=== PATIENT | female | born 1945 | race Caucasian/White ===

== ENCOUNTER 2016-07-17 21:16 | Emergency (ER) | payer MEDICARE, BC ==
[2016-07-17] MEDS ORDERED: IBUPROFEN 400 MG TABLET PO ONE (22:20)
--- NOTE | 2016-07-17 22:33 | ER NURSING DOCUMENTATION ---
Nurse's Notes [facility] Name:Josiane Acuña Age:71 yrs Sex:Female :1945 Arrival Date:07/17/2016 Time:21:16 Bed4 Private MD: Diagnosis:Knee Effusion;Knee and Leg Sprain Presentation: 07/17 21:30 Presenting complaint: Patient states: Missed a step and slid, landed on her right foot rs and caused pain in right knee. She has a hx of right knee osteoarthritis, planned replacement one month. Is able to wt bear, occurred 2 hours ago, took ibuprofen 200 mg, and has been icing it. Denies any other other injuries. Transition of care: Home. Notified ED Physician of patient's arrival and CC Dr. hCicas notified. 21:30 Acuity: CONCHITA 3 rs 21:30 Method Of Arrival: Private Vehicle rs Triage Assessment: 21:43 General: Appears in no apparent distress, comfortable, well developed, well nourished, rs well groomed, Behavior is cooperative, pleasant. Pain: Complains of pain in right knee. Neuro: No deficits noted. Level of Consciousness is awake, alert, Oriented to person, place, time, event. Cardiovascular: No deficits noted. Capillary refill < 3 seconds Pulses are 3+ in right radial artery. Respiratory: No deficits noted. Respiratory effort is even, unlabored, Respiratory pattern is regular, symmetrical. Derm: No deficits noted. Skin is intact, Skin is pink, warm & dry. Musculoskeletal: Circulation, motion, and sensation intact Capillary refill < 3 seconds Swelling present in right knee. Historical: - Allergies: Mjxujvd-Kha-Dhp Reductase Inhibitors; Levaquin; - Home Meds: 1. Albuterol Inhl 2. Advair Diskus Inhl 3. Protonix Oral 4. Aspirin Oral 5. Augmentin Oral for acute sinusitis 6. levothyroxine oral - PMHx: Breast cancer, left; ASTHMA; HYPOTHYROIDISM; OSTEOARTHRITIS; thyroid nodules; - PSHx: knee replacement, left; rotator cuff repair, bilat; Hysterectomy; - Tetanus: < 10 years. - Ebola Screening: : Patient negative for fever greater than or equal to 101.5 degrees Fahrenheit, and additional compatible Ebola Virus Disease symptoms. Patient denies exposure to infectious person. Patient denies travel to an Ebola-affected area in the 21 days before illness onset. No symptoms or risks identified at this time. . - Immunization history: Unable to Obtain. - Social history: Smoking status: Patient states was never smoker of tobacco. Patient/guardian denies using alcohol. Screenin:30 Infectious Disease Risk None. Abuse screen: Denies threats or abuse. Nutritional rs screening: No deficits noted. Vital Signs: 21:30 BP 144 / 65; Pulse 78; Resp 20; Temp 97.9; Pulse Ox 91% on R/A; Weight 83.01 kg; Height rs 5 ft. 6 in. (167.64 cm); Pain 5/10; 21:30 Body Mass Index 29.54 (83.01 kg, 167.64 cm) rs ED Course: 21:18 Patient arrived in ED. ma 21:20 True Chicas MD is Attending Physician. nc 21:30 Svetlana Hendrickson RN is Primary Nurse. rs 21:30 Arm band placed on Bed in low position Call Light in Reach HOB Elevated Side rails up rs x1. Family accompanied patient. X-ray done. 21:30 Door closed. Noise minimized. Lights dimmed. Verbal reassurance given. rs 21:30 Affected limb iced. Affected limb elevated. rs 21:31 Triage completed. rs 21:36 Port Xray Completed. ms 22:25 Crutch training done. Jonathon wrap to right knee Knee immobilizer applied on right knee. rs After putting the knee immobilizer on she stood up at cart side and c/o of it hurting her knee. The immobilizer was removed, and she was encouraged to take it home and wear it if possible. She agreed. 22:27 stood at cart side for crutch sizing and then practiced. rs Administered Medications: 22:15 Drug: Ibuprofen 200 mg; Route: PO; rs 22:31 Follow up: Response: Pain is decreased rs Outcome: 21:34 Discharge ordered by . nc 22:32 Patient left the ED. rs 07/19 10:16 Discharge F/U Call: Unable to reach: no answer st Signatures: Tequila Soliman RN RN st Stalker, Rachael, RN RN rs Chew, Scott, MD MD sc Strickland, Mary ms Addison, Melissa ma
--- NOTE | 2016-07-17 22:33 | ER PHYSICIAN DOCUMENTATION ---
Physician Documentation [facility] Name:Josiane Acuña Age:71 yrs Sex:Female :1945 Arrival Date:07/17/2016 Time:21:16 Bed4 Private MD: True Jones Disposition: 07/17/16 21:34 Discharged to Home/Self Care. Impression: Knee Effusion, Knee and Leg Sprain. - Condition is Good. - Discharge Instructions: KNEE SPRAIN, KNEE IMMOBILIZER. - Medical Reconciliation form form. - Follow up: Private Physician; When: 1 week; Reason: Recheck today's complaints. - Problem is new. - Symptoms are unchanged. HPI: 07/17 21:26 This 71 yrs old Female presents to ER with complaints of Knee Injury - RIGHT. sc 21:26 The patient presents with an injury. The complaints affect the right knee. Context: The sc problem was sustained caught self on stairs, no fall to ground or stairs but knee twisted and became painful and swelling. Onset: The symptom(s)/episode began/occurred today. Modifying factors: The symptoms are alleviated by elevating leg, and ice. Associated signs and symptoms: The patient has no apparent associated signs or symptoms. scheduled for right knee replacement in August. Historical: - Allergies: Cjaercj-Oau-Uve Reductase Inhibitors; Levaquin; - Home Meds: 1. Albuterol Inhl 2. Advair Diskus Inhl 3. Protonix Oral 4. Aspirin Oral 5. Augmentin Oral for acute sinusitis 6. levothyroxine oral - PMHx: Breast cancer, left; ASTHMA; HYPOTHYROIDISM; OSTEOARTHRITIS; thyroid nodules; - PSHx: knee replacement, left; rotator cuff repair, bilat; Hysterectomy; - Tetanus: < 10 years. - Ebola Screening: : Patient negative for fever greater than or equal to 101.5 degrees Fahrenheit, and additional compatible Ebola Virus Disease symptoms. Patient denies exposure to infectious person. Patient denies travel to an Ebola-affected area in the 21 days before illness onset. No symptoms or risks identified at this time. . - Immunization history: Unable to Obtain. - Social history: Smoking status: Patient states was never smoker of tobacco. Patient/guardian denies using alcohol. ROS: 21:27 Constitutional: Negative for fever, chills, and weight loss. sc Eyes: Negative for injury, pain, redness, and discharge. Neck: Negative for injury, pain, and swelling. Cardiovascular: Negative for chest pain, palpitations, and edema. Back: Negative for injury and pain. Skin: Negative for injury, rash, and discoloration. 21:27 Neuro: Negative for headache, weakness, numbness, tingling, and seizure. sc 21:27 MS/extremity: Positive for injury or acute deformity. Exam: Constitutional: This is a well developed, well nourished patient who is awake, alert, and in no acute distress. Head/Face: Normocephalic, atraumatic. ENT: Nares patent. No nasal discharge, no septal abnormalities noted. Tympanic membranes are normal and external auditory canals are clear. Oropharynx with no redness, swelling, or masses, exudates, or evidence of obstruction, uvula midline. Mucous membranes moist. Neck: Trachea midline, no thyromegaly or masses palpated, and no cervical lymphadenopathy. Supple, full range of motion without nuchal rigidity, or vertebral point tenderness. No meningismus. Back: No spinal tenderness. No costovertebral tenderness. Full range of motion. 21:28 Skin: Warm, dry with normal turgor. Normal color with no rashes, no lesions, and no sc evidence of cellulitis. 21:28 Musculoskeletal/extremity: Extremities: grossly normal except: decreased ROM, swelling, tenderness, ROM: full active range of motion, full passive range of motion, Circulation is intact in all extremities. Sensation intact. Vital Signs: 21:30 BP 144 / 65; Pulse 78; Resp 20; Temp 97.9; Pulse Ox 91% on R/A; Weight 83.01 kg; Height rs 5 ft. 6 in. (167.64 cm); Pain 5/10; 21:30 Body Mass Index 29.54 (83.01 kg, 167.64 cm) rs MDM: 21:20 Patient medically screened. sc 21:28 Differential diagnosis: dislocation, closed fracture, contusion. Data reviewed: vital sc signs, nurses notes, radiologic studies, and as a result, I will continue to observe the patient. Counseling: I had a detailed discussion with the patient and/or guardian regarding: the historical points, exam findings, and any diagnostic results supporting the discharge/admit diagnosis, radiology results, the need for outpatient follow up, for a referral to a specialist, to return to the emergency department if symptoms worsen or persist or if there are any questions or concerns that arise at home. 07/18 07:27 Order name: KNEE; [address] [place] [id number] EDND 07/17 21:34 Order name: Elevate and Ice Pack; Complete Time: 22:23 ok 07/17 21:34 Order name: ORTHO: Crutches & Training; Complete Time: : ok 07/17 21:34 Order name: ORTHO: Knee Immobilizer; Complete Time: : ok Dispensed Medications: 22:15 Drug: Ibuprofen 200 mg; Route: PO; rs 22:31 Follow up: Response: Pain is decreased rs Signatures: Svetlana Hendrickson RN RN rs True Chicas MD MD ok
--- NOTE | 2016-07-18 07:20 | RADIOLOGY REPORT ---
Three views of the right knee demonstrate no displaced fracture, subluxation or bony destructive change. Marked tricompartmental degenerative joint disease is noted. No other abnormality is seen. IMPRESSION: Marked tricompartmental degenerative joint disease. No displaced injury is identified. If clinically indicated, further evaluation and/or follow -up may be of benefit. [facility] MED[facility] CENTERLissa
== END 2016-07-17 22:33 | disposition home or self-care (01) ==
LOC: ER 21:16
DX: S86.911A Strain of unspecified muscle(s) and tendon(s) at lower leg level, right leg, initial encounter (principal); M25.461 Effusion, right knee; W18.49XA Other slipping, tripping and stumbling without falling, initial encounter; Y93.01 Activity, walking, marching and hiking; M19.90 Unspecified osteoarthritis, unspecified site; Z79.82 Long term (current) use of aspirin; Z79.899 Other long term (current) drug therapy; Z85.3 Personal history of malignant neoplasm of breast
CPT/HCPCS: 73562; 99283